=== PATIENT | female | born 1950 | race Caucasian/White ===

== ENCOUNTER 2017-12-02 05:50 | Observation (INO) | payer OTHER ==
[2017-12-02] VITALS (8 sets, daily range): BP systolic 116–201; BP diastolic 73–103; PULSE 81–99; TEMP 36.7–37.2; O2SAT 95–98; Ht 160 cm; Wt 63.1 kg
[~2017-12-02] VITALS: Ht 160 cm; Wt 63.1 kg
[~2017-12-02 05:50] MED LIST: ALPR0.25 PO; APPLE CIDER VINEGAR PO; ASPI325T4 PO; ATEN50TA PO; CONJ0.3T3 PO; DTR/5 PO; GLUC500C4 PO; GLY/5 PO; HYDR25TA4 PO; LPT/40 PO; MULTTAB58 PO; NAPR250T77 PO; OXYC7.5T78 PO; VIT B COMPLEX PO; VITA400C3 PO; [UNRECOGNIZED DRUG - OTHER] PO
[2017-12-02] MEDS ORDERED: HydrALAZINE HCL 20 MG/ML VIAL ONE (07:27)
[2017-12-02] MEDS ORDERED: GLC/500 PO (07:41)
[2017-12-02] MEDS ORDERED: OXYB10TA13 PO (07:41)
[2017-12-02] MEDS ORDERED: GLIP10TA9 PO (07:41)
[2017-12-02] MEDS ORDERED: MECL-91 (07:41)
[2017-12-02] MEDS ORDERED: FSMD/70 PO (07:41)
[2017-12-02] MEDS ORDERED: PRED-301 PO (07:41)
[2017-12-02] MEDS ORDERED: INSU100I2 SC (07:41)
[2017-12-02] MEDS ORDERED: GABA-112 PO (07:41)
[2017-12-02] MEDS ORDERED: OMEG10007 PO (07:41)
[2017-12-02] MEDS ORDERED: HYDR25TA4 PO (07:41)
[2017-12-02] MEDS ORDERED: FAMC1TAB PO (07:41)
[2017-12-02] MEDS ORDERED: ACYC-223 PO (07:41)
[2017-12-02] MEDS ORDERED: CHOL1000 PO (07:41)
[2017-12-02] MEDS ORDERED: BUSP5TAB59 PO (07:41)
[2017-12-02] MEDS ORDERED: HYDR200T5 PO (07:41)
--- NOTE | 2017-12-02 07:43 | History & Physical Bridge Note ---
H&P Re-Evaluation Bridge Note: I have examined the patient, reviewed the History & Physical and in the interval since the performance of the History & Physical I have noted the following changes of clinical significance: No changes noted
--- NOTE | 2017-12-02 07:44 | Pre Sedation Assessment ---
Pre Sedation Assessment General Date of Sedation: December 02, 2017. Vital Signs Past 12 Hours Date Time Temp Pulse Resp B/P (MAP) Pulse Ox O2 Delivery O2 Flow Rate FiO2 12/02/17 07:02 36.8 86 18 201/103 (135) 98 Room Air Review Cardiovascular: regular rate, rhythm Lungs: lungs clear, normal breath sounds Pre-Sedation Airway Assessment Smoking Status: Never Smoker Hx of Sleep Apnea: No Hx of difficult intubation: No Short Thick Neck: No Thyro-mental Distance: < or =3 Finger Breadths Oral Cavity: Dentures Mallampati Classification: Class II ASA Classification: Class II Procedure Planning Contraindications for Sedation: None Current Medications Reviewed: Yes Notes The planned sedation has been discussed with the patient. Informed Consent was obtained. I have identified the patient, determined the appropriateness of sedation and have assessed the patient immediately prior to the procedure. All medicine(s) and interventions are by my order.
[2017-12-02] MEDS ORDERED: MIDAZOLAM HCL 5 MG/ML 1 ML VIAL ONE ×2 (07:56→08:45)
[2017-12-02] MEDS ORDERED: FENTANYL CITRATE INJ 50 MCG/1 ML 2 ML VIAL ONE ×2 (07:56→08:45)
[2017-12-02] MEDS ORDERED: ISOPROTERENOL 200 MCG / 50ML D5W ONE (08:58)
[2017-12-02] MEDS ORDERED: IV FLUIDS COMPLETED PRN (09:45)
--- NOTE | 2017-12-02 10:02 | Post Sedation Assessment ---
Post Sedation Assessment General Date of Sedation December 02, 2017. Vital Signs: Vital Signs Past 12 Hours Date Time Temp Pulse Resp B/P (MAP) Pulse Ox O2 Delivery O2 Flow Rate FiO2 12/02/17 07:02 36.8 86 18 201/103 (135) 98 Room Air Post Procedure Recovery Score Activity: (2) Moves 4 extremities * Respiration: (2) Deep breath/cough Circulation: (2) +/-20% PreAnes Value Consciousness: (2) Fully Awake Oxygen Saturation: (2) > 92% On Room Air Post Anesthesia Score: 10 Discharge Sedation Level of Care: Fast Track Phase II Post Sedation Plan On clinical assessment, the patient appears to have tolerated the sedation without complications. Patient is recovering as anticipated. Patient will continue to be monitored by nursing and may be discharged when sedation discharge criteria are met per below protocol. Upon Completions of procedure and additional 15 minutes continue every 5 minute vital signs and the P.A.R. score; then discharge to a Phase I or Fast Track to Phase II per the following guidelines: * Discharge Patient to appropriate Phase II area if PAR is 8 or greater or return to pre- procedure baseline. The post - procedure orders will be as directed. * If PAR score is less than 8 or not return to pre-procedure baseline then patient will follow Phase I monitoring till PAR is reached for Phase II. The Phase I may be done in procedure room or may call to secure a Phase I area. * If naloxone or flumazenil are used for reversal, hold in Phase I for an additional 60 -120 minutes before discharge to Phase II. Please call the Sedation Physician to re-evaluate and complete post-note for discharge to Phase II area. Do NOT discharge from procedure sedation or Phase 1 until post- sedation evaluation note is complete by procedure /sedation MD Sedation Discharge Instructions to be given to the patient at discharge to home.
--- NOTE | 2017-12-02 10:03 | [facility] Post Operative Brief Note ---
Immediate Operative Summary Operative Date December 02, 2017. Pre-Operative Diagnosis svt Post-Operative Diagnosis avrnt Procedure(s) Performed slow pathway modification, EPS, 3d mapping of His bundle and C/s Os, isprel drug infusion Surgeon rebecca dunn Dethistler Operator Surgeon(s) none Estimated Blood Loss <5cc Findings See Below see official report Fluids (cc crystalloids) 150 Specimens none Drains None Anesthesia Type IV Sedat Cons RN Only Complication(s) none Disposition Accompanied Pt To Recover: yes Disposition: cardiac film laboratory technician holding recovery unit
[2017-12-02] MEDS ORDERED: ATEN-173 PO (10:13)
--- NOTE | 2017-12-02 10:14 | Discharge Instructions ---
Discharge Instructions Date of Service December 02, 2017. Admission Reason for Admission: SVT Discharge Discharge Diagnosis / Problem: avnrt Discharge Goals Goal(s): Improve function Activity Recommendations Activity Limitations: as noted below (no heavy lifting or squating for 1 week) Shower/Bathe: tomorrow Driving or Machine Use: resume 1 day after discharge . Instructions / Follow-Up Instructions / Follow-Up ACTIVITY RECOMMENDATIONS: It is common to feel weak and fatigue for a few days. * Do not drive or operate any motorized equipment for the next 1 day. * Limit stair usage (2 or 3 trips a day only) for the next 1 day. * Do not lift anything heavier than 10 pounds for the next 7 days. * Do not engage in vigorous exercise or any sports for the next 7 days. * You may shower the day after your procedure, but do not immerse the area for three days. Cleanse the site gently with soap and water. SPECIAL CARE INSTRUCTIONS: * You may replace the pressure dressing or band-aid the morning after the procedure. * After your procedure, it is normal to have a small bruise or small lump at the site. Examine your site daily for any change in the bruise or lump, redness, swelling, drainage or numbness. Notify your doctor if any change. BLEEDING: * If there is a small amount of bleeding at the site, lie down and apply firm pressure with a clean cloth for ten minutes. When the bleeding stops, lie quietly keeping the procedure limb straight for six hours. Notify your doctor as soon as possible. * If the bleeding does not stop after ten minutes or if there is a large amount of bleeding or spurting, call 911 immediately. Continue to lie down and hold firm pressure until help arrives. SKIN IRRITATION: * You may experience some redness and/or swelling in the area where radiation was administered. If any skin irritation occurs, please contact your family physician. FOLLOW UP VISIT: Keep any scheduled doctor appointments. Current Hospital Diet Patient's current hospital diet: AHA Diet (Heart Healthy) Discharge Diet Recommended Diet: AHA Diet (Heart Healthy) Procedures Procedures Performed: slow pathway modification, EPS, 3d mapping of His bundle and C/s Os, isprel drug infusion Pending Studies Studies pending at discharge: no Medical Emergencies . Who to Call and When: Medical Emergencies: If at any time you feel your situation is an emergency, please call 911 immediately. . Non-Emergent Contact Non-Emergency issues call your: Case Management Manager . . "Provider Documentation" section prepared by Wendy Camacho. .
[2017-12-02] MEDS ORDERED: ACETAMINOPHEN 325 MG TAB PO PRN (10:15)
--- NOTE | 2017-12-02 10:17 | Discharge Summary ---
Discharge Summary Date of Service December 02, 2017. Discharge Summary Admission Date: 12/02/2017 Discharge Date: December 03, 2017 Discharge Disposition: Home Principal Diagnosis: avrnt s/p slow pathway modification Secondary Diagnoses/Problems: htn, hld, dm, PMR on prednisone Procedures: EPS, 3d mapping of his bundle and c/s os, isprel drug infusion, slow pathway modification Medication Reconciliation New Medications: Atenolol (Tenormin) 25 Mg Tab 25 MG PO BID for 30 Days, #60 TAB Continued Medications: Acyclovir (Zovirax) 800 Mg Tab 800 MG PO BID for 10 Days, #20 TAB Alendronate/Cholecalciferol (Fosamax+D 70MG/2800 Iu) 70 Mg Tab 1 TABLET PO WK, TAB Aspirin (Aspirin) 325 Mg Tab 325 MG PO DAILY, TAB Buspirone Hcl (Buspirone Hcl) 5 Mg Tab 1 TAB PO BID for 30 Days, #60 TAB 2 Refills Cholecalciferol (Vitamin D3) 1,000 Unit Tab 1 TAB PO DAILY for 30 Days, #30 TAB 5 Refills Cholecalciferol (Vitamin D3) 1,000 Unit Tab 1 TAB PO DAILY for 30 Days, #30 TAB 5 Refills Famciclovir (Famciclovir) 250 Mg Tab 1 TAB PO BID Fish Oil (Sheridan-3) 1 Ea Cap 1 CAP PO DAILY, CAP Gabapentin (Neurontin) 100 Mg Cap 100 MG PO BLANK, CAP Glipizide (Glucotrol) 10 Mg Tab 2 TAB PO BID for 30 Days, #120 TAB 5 Refills Hydrochlorothiazide (Hctz) 25 Mg Tab 1 TAB PO DAILY for 30 Days, #30 TAB 5 Refills Hydroxychloroquine Sulfate (Plaquenil) 200 Mg Tab 1 TAB PO BID for 90 Days, #180 TAB 1 Refill Insulin Lispro (Human) (Humalog Kwikpen) 100 Unit/Ml Inj 13 UNITS SC BID Meclizine HCl (Meclizine 25) 25 Mg Tab PRN for Dizziness or Vertigo Metformin Hcl (Glucophage) 500 Mg Tab 1000 MG PO BID, TAB Multiple Vitamin (Multivitamin) 1 Tab Tab 1 TAB PO DAILY, TAB Oxybutynin Chloride Er (Ditropan Xl) 10 Mg Tab 1 TAB PO DAILY for 30 Days, #30 TAB 5 Refills Prednisone (Prednisone) 5 Mg Tab 1-2 TAB PO DAILY Discontinued Medications: Atenolol (Tenormin) 50 Mg Tab 50 MG PO BID, TAB Admission Information Physical Exam (per Admitting): aaox3, NAD Supple No JVD Nrl S1/s2, no murmur cta b/l no w/r/r soft nt/nd no edema b/l no focal deficits skin intact Hospital Course Pt admitted for elective EPS with possible ablation due to SVT. She underwent procedure without any complications-diagnosed with AVNRT-underwent slow pathway modification without any complications. Monitored overnight and discharged home on her lower dose of atenolol 25mg BID. Total time spent on discharge = > 30 minutes This includes examination of the patient, discharge planning, medication reconciliation, and communication with other providers. Discharge Instructions ACTIVITY RECOMMENDATIONS: It is common to feel weak and fatigue for a few days. * Do not drive or operate any motorized equipment for the next 1 day. * Limit stair usage (2 or 3 trips a day only) for the next 1 day. * Do not lift anything heavier than 10 pounds for the next 7 days. * Do not engage in vigorous exercise or any sports for the next 7 days. * You may shower the day after your procedure, but do not immerse the area for three days. Cleanse the site gently with soap and water. SPECIAL CARE INSTRUCTIONS: * You may replace the pressure dressing or band-aid the morning after the procedure. * After your procedure, it is normal to have a small bruise or small lump at the site. Examine your site daily for any change in the bruise or lump, redness, swelling, drainage or numbness. Notify your doctor if any change. BLEEDING: * If there is a small amount of bleeding at the site, lie down and apply firm pressure with a clean cloth for ten minutes. When the bleeding stops, lie quietly keeping the procedure limb straight for six hours. Notify your doctor as soon as possible. * If the bleeding does not stop after ten minutes or if there is a large amount of bleeding or spurting, call 911 immediately. Continue to lie down and hold firm pressure until help arrives. SKIN IRRITATION: * You may experience some redness and/or swelling in the area where radiation was administered. If any skin irritation occurs, please contact your family physician. FOLLOW UP VISIT: Keep any scheduled doctor appointments.
--- NOTE | 2017-12-02 11:39 | OPERATIVE REPORT ---
DATE OF OPERATION: 12/02/2017 PREOPERATIVE DIAGNOSIS: Supraventricular tachycardia. POSTOPERATIVE DIAGNOSIS: Atrioventricular melina reentrant tachycardia. SURGEON: Wendy Camacho DO ASSISTANTS: None. ANESTHESIA: Monitored conscious sedation administered under my supervision by Blank Hinds. Start time was 0807, end time 1011, a total of 6 mg of Versed, 150 mcg of fentanyl. INTRAVENOUS FLUIDS: 150 mL. BLOOD LOSS: Less than 5 mL. URINE OUTPUT: Not applicable. SPECIMENS: None. FINDINGS: See below. DRAINS: None. INDICATIONS: This is a 67-year-old female with a past medical history of hypertension, hyperlipidemia, diabetes, PMR, on prednisone, as well as SVT, initially diagnosed in April 2017 where she ended up in the [facility] and got adenosine, broke with 6 mg, it was a short RP 199 beats per minute. She had a recurrent episode back in June, broke with Valsalva maneuvers, did not need to go to the Emergency Room. Due to the recurrent SVT, she was recommended an EP study with possible ablation. CONSENT: Consent was obtained prior to the patient going into the electrophysiology lab. The patient was informed of risks, benefits, and alternatives to the procedure. Risks include but not limited to sudden cardiac , cardiac arrhythmias, cerebrovascular accident, myocardial infarction; injury to the blood vessels, chamber of the heart, or the [place] electrical system where she would need a permanent pacemaker, bleeding, and infection. The patient understood these risks and agreed to the procedure as planned. Informed consent was obtained. DESCRIPTION OF THE PROCEDURE: The patient was brought into the electrophysiology lab in a fasting state. She was connected to continuous cardiac monitoring. A time-out was performed to ensure the patient's identity and procedure correctly. The patient was prepped and draped over the bilateral groins in normal surgical standard fashion. Monitored conscious sedation was given throughout the procedure for the patient's comfort level. [place] precautions maintained throughout the procedure. 10 mL of 1% lidocaine were given in the bilateral groins for local anesthesia. Then using the modified Seldinger technique, venous access was obtained in the following manner: The left femoral vein had a 6-Cambodian sheath, followed by a Mimi quadripolar catheter positioned into the right ventricular apex. A 7-Cambodian sheath followed by a hisser quadripolar catheter positioned over the His bundle. A 7-Cambodian sheath followed by a Decapolar DF curved Biosense coronary sinus catheter positioned in the coronary sinus. The right femoral vein had initially a 6-Cambodian sheath followed by a quadripolar Mimi catheter positioned in the high right atrium. Electrophysiology study was performed with the following findings: OR interval 168 milliseconds, QRS is 96 milliseconds, QT 336 milliseconds, sinus cycle length 604 milliseconds, AH 108 milliseconds, HV 38 milliseconds. AV Wenckebach 320 milliseconds, fast pathway ERP was 600/350. She easily recurrently induced into an SVT at 600/300. The tachycardia cycle length was 358. The retrograde A was concentric and the VA time was on the longer at 90-100 milliseconds. I ended up having to put ice so that she went on to sustain the tachycardia and then I was able to ventricularly pace into the tachycardia and have the tachycardia continue with a VAV response once I came off ventricular pacing. The tachycardia did start with a long AH jump. The right ventricular ERP was 500/200 and 400/220. With the diagnosis of typical AVNRT, we then set up to do a slow pathway modification. The right atrial quadripolar catheter was removed and the 6-Cambodian sheath on the right femoral vein was swapped out for an SRO and the ablation catheter was placed up into the body. We did 3D mapping of the His bundle and coronary sinus os, then I placed the catheter on the low right atrial septum and gave a series of radiofrequency nash at 25 ames, temperature of 50, and got a few nash with good junctional. I then removed the catheter, placed the Mimi quadripolar catheter back through the SRO sheath up into the high right atrium and performed a post-ablation electrophysiology study with the following findings: OR interval 168 milliseconds, QRS 86 milliseconds, QT 330 milliseconds, sinus cycle length 568 milliseconds, AH 90 milliseconds, HV 52 milliseconds, AV Wenckebach 360 milliseconds, AV node ERP was 600/300 and 450/340. Atrial ERP was 600/260 and 450/200. The right ventricular 500/220 and 400/220. Given atrial extrastimuli up to triples, I did not induce any arrhythmias. I then started isuprel at 1 and once I had an adequate isuprel response, I did another electrophysiology study with the following findings: OR interval 148 milliseconds, QRS 84 milliseconds, QT 336 milliseconds, sinus cycle length 582 milliseconds, AH 82 milliseconds, HV 48 milliseconds, AV Wenckebach 300 milliseconds, the AV node ERP was less than or equal to the atrial, the atrial ERP was less than or equal to 450/200, right ventricular ERP was 350/200. I gave up to triple atrial extrastimuli on the isuprel at 1, I did not induce any arrhythmias, nor did I have any echos. Then I pulled all the catheters from the body and then the sheaths were pulled and manual compression was used to establish hemostasis. IMPRESSION: 1. Inducible typical AVNRT, status post successful slow pathway modification. 2. Dual AV melina pathway physiology. PLAN: Monitor the patient overnight, 12-lead ECG. She is not to do any heavy lifting or squatting for 1 week. We will reduce her atenolol back down to 25 mg twice a day as that initial dose she was taken for hypertension. She should follow up in my office in 1 month's time. I attest to the content of the Intraoperative Record and any orders documented therein. Any exception s are noted below.
[2017-12-02] MEDS: GABAPENTIN 100 MG CAP PO SCH ×2 (14:12→20:39)
[2017-12-02] MEDS: METFORMIN HCL 500 MG TAB PO SCH (16:30)
[2017-12-02] MEDS: HYDROXYCHLOROQUINE SULFATE 200 MG TAB PO SCH (20:39)
[2017-12-02] MEDS: ACYCLOVIR 400 MG TAB PO SCH (20:40)
[2017-12-02] MEDS: INSULIN ASPART 100 UNITS/ML 3 ML PEN SC SCH (20:46)
[2017-12-02] MEDS ORDERED: GABAPENTIN 100 MG CAP PO SCH (21:00)
[2017-12-03 00:01] VITALS: O2SAT 95
[2017-12-03 03:48] VITALS: BP 132/79; PULSE 79; TEMP 36.8; O2SAT 94
[2017-12-03] MEDS: ACYCLOVIR 400 MG TAB PO SCH (07:45)
[2017-12-03] MEDS: HYDROXYCHLOROQUINE SULFATE 200 MG TAB PO SCH (07:45)
[2017-12-03] MEDS: GABAPENTIN 100 MG CAP PO SCH (07:46)
[2017-12-03] MEDS: METFORMIN HCL 500 MG TAB PO SCH (07:47)
[2017-12-03] MEDS: INSULIN ASPART 100 UNITS/ML 3 ML PEN SC SCH (07:49)
[2017-12-03 08:00] VITALS: BP 125/76; PULSE 79; TEMP 36.8; O2SAT 96; O2SAT 98
--- NOTE | 2017-12-03 08:16 | Cardiology Follow-Up ---
Subjective Subjective Date of Service: December 03, 2017. Pt evaluation today including: conversation w/ patient, physical exam, lab review, review of studies Pain: none Review of Systems Constitutional: No fever, No fatigue Respiratory: No shortness of breath, No dyspnea on exertion Cardiac: No chest pain, No edema, No palpitations Abdomen: No nausea, No diarrhea Neurologic: No weakness Endo: No fatigue Objective Vital Signs Last Vital Signs Documentation Date Time Temp Pulse Resp B/P (MAP) Pulse Ox O2 Delivery O2 Flow Rate FiO2 12/03/17 08:00 36.8 79 18 125/76 (92) 96 Room Air Physical Exam: General Appearance: WD/WN, no apparent distress Eyes: bilateral eyes PERRL, bilateral eyes EOMI Neck: supple, no JVD Respiratory/Chest: lungs clear, normal breath sounds Cardiovascular: regular rate, rhythm, no edema, no murmur Abdomen: soft Extremities: no pedal edema Neurologic/Psychiatric: alert, oriented x 3 Skin: warm/dry Assessment and Plan Impression: 1. AVNRT s/p ablation of slow pathway modification 12/02/2017 2. HTN 3. HLD 4. DM 5. PMR on prednisone Plan: -Ok for discharge today -Continue home medications-with a lower dose of atenolol -No heavy lifting or squatting for 1 week -F/u in my [place] office in 1 month Discharge planning: home Medications: Medications Administered Medications (Trade) Dose Ordered Sig/Liza Route Start Time Stop Time Status Last Admin Dose Admin Acyclovir (Zovirax Tab) 800 mg BID PO 12/02/17 21:00 12/04/17 20:59 12/03/17 07:45 800 MG Aspirin (Ecotrin Tab) 325 mg DAILY PO 12/03/17 09:00 01/02/18 08:59 12/03/17 07:46 325 MG Atenolol (Tenormin Tab) 25 mg BID PO 12/02/17 13:00 01/01/18 12:59 12/03/17 07:47 25 MG Buspirone HCl (Buspar Tab) 5 mg BID PO 12/02/17 21:00 01/01/18 20:59 12/03/17 07:44 5 MG Gabapentin (Neurontin Cap) 100 mg TID PO 12/02/17 14:00 01/01/18 13:59 12/03/17 07:46 100 MG Glipizide (Glucotrol Tab) 20 mg DAILY@0700,1615 PO 12/02/17 16:15 01/01/18 16:14 12/03/17 07:45 20 MG Hydrochlorothiazide (Hydrochlorothiazide Tab) 25 mg DAILY PO 12/03/17 09:00 01/02/18 08:59 12/03/17 07:46 25 MG Hydroxychloroquine Sulfate (Plaquenil Tab) 200 mg BID PO 12/02/17 21:00 01/01/18 20:59 12/03/17 07:45 200 MG Insulin Aspart (novoLOG ASPART) 13 units BID SC 12/02/17 21:00 01/01/18 20:59 12/03/17 07:49 13 UNITS Metformin HCl (Glucophage Tab) 1,000 mg BIDM PO 12/02/17 16:45 01/01/18 16:44 12/03/17 07:47 1,000 MG Multivitamins (Multivitamin Tab) 1 tab DAILY PO 12/03/17 09:00 01/02/18 08:59 12/03/17 07:44 1 TAB Oxybutynin Chloride (Ditropan-Xl Tab) 10 mg DAILY PO 12/03/17 09:00 01/02/18 08:59 12/03/17 07:44 10 MG Prednisone (PredniSONE TAB) 5 mg DAILY PO 12/03/17 09:00 01/02/18 08:59 12/03/17 07:45 5 MG Gabapentin (Neurontin Cap) 200 mg HS PO 12/02/17 21:00 01/01/18 20:59 12/02/17 20:39 200 MG Lab Results: Telemetry: SR with 1st degree AV block ECG: SR Last 24 Hours Test 12/02/17 11:11 12/02/17 16:06 12/02/17 20:42 12/03/17 07:16 Bedside Glucose 168 mg/dl 243 mg/dl 166 mg/dl 196 mg/dl
[2017-12-03] MEDS ORDERED: OXYBUTYNIN CHLORIDE 5 MG TABCR PO SCH (09:00)
[2017-12-03] MEDS ORDERED: ASPIRIN 325 MG ECTAB PO SCH (09:00)
[2017-12-03] MEDS ORDERED: HYDROCHLOROTHIAZIDE 25 MG TAB PO SCH (09:00)
[2017-12-03] MEDS ORDERED: MULTIVITAMIN TAB PO SCH (09:00)
[2017-12-03 09:14] VITALS: BP 125/76; PULSE 79; TEMP 36.8; O2SAT 96
== END 2017-12-03 10:06 | disposition home or self-care (01) ==
LOC: C.EP 05:50 → ENRESERV 10:06 → C.2T 10:12
PROVIDERS: ADMIT Internal Medicine; ATTEND Internal Medicine
DX: I47.1 Supraventricular tachycardia (principal); I10 Essential (primary) hypertension; E78.5 Hyperlipidemia, unspecified; E11.9 Type 2 diabetes mellitus without complications; M43.16 Spondylolisthesis, lumbar region; Z79.82 Long term (current) use of aspirin; Z79.4 Long term (current) use of insulin; Z90.49 Acquired absence of other specified parts of digestive tract; Z90.710 Acquired absence of both cervix and uterus; Z90.722 Acquired absence of ovaries, bilateral; Z90.79 Acquired absence of other genital organ(s); Z82.49 Family history of ischemic heart disease and other diseases of the circulatory system; Z83.3 Family history of diabetes mellitus